=== PATIENT | female | born 1935 | race Caucasian/White ===

== ENCOUNTER 2018-09-26 13:51 | Emergency (ER) | payer MEDICARE ==
[~2018-09-26] VITALS: Ht 160 cm; Wt 69.4 kg
[~2018-09-26 13:51] MED LIST: ASPIR 8181 MG; LEVOTHYROXINE75 MCG PO; METOPROLOL SUCC50 MG PO; OMEPRAZOLE20 M1
--- OUTSIDE RECORDS SUMMARY | 2018-09-26 13:54 | XMS REPORT ---
[facility] Address Unknown Phone Unavailable Care Team Providers Care Stock Broker Name Role Phone Ihsan ALFARO Unavailable Unavailable Problems This patient has no known problems. Allergies, Adverse Reactions, Alerts This patient has no known allergies or adverse reactions. Medications This patient has no known medications. Results Test Description Test Time Test Comments Text Results Atomic Results Result Comments CT LUMBAR SPINE WO [place] [address] Patient Name: JEANNETTE SINGH MR #: [id number] : 1935 Age/Sex: 82/F Req #: [id number] Adm Physician: Ordered by: GEE ALFARO MD Report #: [id number] Location: ER Room/Bed: Procedure: [id number] CT/CT LUMBAR SPINE WO Exam Date: Exam Time: REPORT STATUS: Signed History: Back pain radiates to the right side x1 week Comparison studies: Lumbar spine x-ray 03/29/2017. Technique: Axial images were obtained through the lumbar spine.. Coronal and sagittal images reconstructed from the axial data. Intravenous contrast: None Findings: Number of non-rib bearing vertebral bodies: 5 Alignment: Normal lumbar curvature is maintained. Soft tissues: No gross acute abnormalities. Paraspinal muscles: Mild to moderate symmetric atrophy. Sacroiliac joints: Mild degenerative changes. Vertebrae: Bones are diffusely demineralized. Recent- appearing inferior L4 endplate compression deformity results in approximately 20% height loss. No retropulsion. This finding is new from the lumbar spine x- ray of 03/29/2017. Chronic-appearing endplate fractures include: Superior L1 endplate (up to 40% height loss centrally) inferior L2 endplate (up to 35% height loss centrally), inferior L3 endplate (up to 40% height loss centrally). Degenerative changes: T12-L1: Vacuum disc changes. Patent canal and foramina. L1-L2: Mild loss of disc height with vacuum disc changes. Minimal retrolisthesis of L1 on L2 with associated disc osteophyte complex and facet arthrosis with mild left foraminal stenosis. Patent canal. L2-L3: Vacuum disc changes. Minimal retropulsion of the inferior L2 endplate with associated disc osteophyte complex. No significant canal or foraminal stenosis. L3-L4: Disc bulge asymmetric to the left, thickened ligamentum flavum and facet arthrosis result in mild canal and mild left foraminal stenosis. L4-L5: Vacuum disc changes. Disc bulge, thickened ligamentum flavum and moderate facet arthrosis result in moderate to severe canal stenosis and severe right subarticular stenosis. No significant foraminal stenosis per L5-S1: Severely degenerated disc near complete loss of disc height with disc calcification. No significant canal or foraminal stenosis. Incidental findings: Severe scattered calcified atherosclerosis throughout the abdominal aorta and within its branching vessels. Multiple punctate calcifications throughout the spleen and liver compatible with sequela of granulomatous disease. There are multiple nonenlarged retroperitoneal lymph nodes which are nonspecific. IMPRESSION: 1. Recent-appearing inferior L4 endplate compression fracture (20% height loss). 2. Chronic-appearing endplate compression fractures from L1 to L3. 3. Diffuse bone demineralization. 4. Degenerative changes most notable for severe L5-S1 disc degeneration and moderate to severe canal stenosis and severe right subarticular stenosis at L4-L5. 5. Incidental findings as describe. Findings discussed with Dr. Alfaro at 1233 hours on 09/05/2017. Signed by: Dr. Logan Mcclain M.D. on 09/05/2017 12:36 PM Dictated By: LOGAN MCCLAIN MD [id number] Transcribed By: PHIL on 09/05/17 1236 COPY TO: GEE ALFARO MD
[2018-09-26] MEDS ORDERED: ASPIRIN 81 MG CHEW TAB PO ONE (14:30)
[2018-09-26 15:00] LABS: BASOPHILS % 0.3 % (0.0-1.0); EOSINOPHILS # (AUTO) 0.2 (0.0-0.4); EOSINOPHILS % 1.6 % (0.0-6.0); HEMATOCRIT 43.6 % (34.2-44.1); HEMOGLOBIN 14.6 g/dL (12.0-16.0); LYMPHOCYTES # (AUTO) 1.8 (1.0-3.2); LYMPHOCYTES % 18.8 % (18.0-39.1); MEAN CORPUSCULAR HEMOGLOBIN 30.5 pg (28-32); MEAN CORPUSCULAR HGB CONC 33.5 g/dL (31-35); MEAN CORPUSCULAR VOLUME 91.2 fL (81-99); MONOCYTES # (AUTO) 0.7 (0.2-0.8); MONOCYTES % 7.4 % (4.4-11.3); NEUTROPHILS % 71.5 % (38.7-80.0); PLATELET COUNT 268 x10e3/uL (140-360); RED BLOOD COUNT 4.78 x10e6/uL (3.6-5.1); RED CELL DISTRIBUTION WIDTH 13.2 % (11.7-14.4)
[2018-09-26 15:25] LABS: INR 0.85; PARTIAL THROMBOPLASTIN TIME 30.9 seconds (23.8-35.5); PROTHROMBIN TIME 12.4 seconds (11.9-14.5)
[2018-09-26 15:34] LABS: ALANINE AMINOTRANSFERASE 17 IU/L (0-55); ALBUMIN 3.6 g/dL (3.5-5.0); ALBUMIN/GLOBULIN RATIO 0.8 (0.8-2.0); ALKALINE PHOSPHATASE 103 IU/L (40-150); ANION GAP 15.3 mmol/L (8-16); BLOOD UREA NITROGEN 19 mg/dL (7-26); BUN/CREATININE RATIO 21 (6-25); CARBON DIOXIDE 23 mmol/L (22-29); CHLORIDE 97 mmol/L (98-107); CREATINE KINASE 44 IU/L (29-168); CREATININE, SERUM 0.89 mg/dL (0.57-1.11); EST GLOMERULAR FILTRATION RATE > 60 ML/MIN (60-); GLUCOSE 89 mg/dL (74-118); POTASSIUM 4.3 mmol/L (3.5-5.1); SODIUM 131 mmol/L (136-145)
[2018-09-26] MEDS ORDERED: DOXYCYCLINE HY100 M3 PO (16:00)
[2018-09-26] MEDS ORDERED: CEPHALEXIN500 MG PO (16:00)
[2018-09-26] MEDS ORDERED: FUROSEMIDE40 MG PO (16:00)
[2018-09-26] MEDS ORDERED: ULTRAM 50MG50 MG PO (16:00)
[2018-09-26] MEDS ORDERED: METOPROLOL TART50 MG PO (16:00)
[2018-09-26] MEDS ORDERED: OMEPRAZOLE40 MG PO (16:00)
[2018-09-26] MEDS ORDERED: GABAPENTIN100 MG PO (16:00)
[2018-09-26] MEDS ORDERED: ALPRAZOLAM0.5 MG PO (16:00)
--- NOTE | 2018-09-26 16:08 | Diagnostic Imaging Report ---
EXAM: XR CHEST 1 VIEW DATE: 09/26/2018 2:30 PM INDICATION: Pain COMPARISON: 07/25/2009, no report available FINDINGS: Lines and Tubes: None Heart and Mediastinum: Accentuated by low lung volumes. Tortuous descending aorta with moderate vascular calcifications. Lungs and Pleura: Mild to moderate scattered interstitial/airspace opacities suggesting edema with superimposed basilar atelectasis versus pneumonia. Bones and Soft Tissues: No acute findings. IMPRESSION: 1. Airspace opacities as above. Signed by: Dr. Isidro Lakhani MD on 09/26/2018 4:05 PM
[2018-09-26] MEDS ORDERED: LEVAQUIN500 MG PO (16:56)
[2018-09-26] MEDS ORDERED: NEXIUM40 M1 PO (16:56)
== END 2018-09-26 17:27 | disposition home or self-care (01) ==
LOC: ER 13:51
DX: R05 Cough (principal); R07.89 Other chest pain; J15.9 Unspecified bacterial pneumonia
CPT/HCPCS: 36415; 71045; 80053; 82550; 82553; 83735; 84484; 85025; 85610; 85730; 93005; 99284

== ENCOUNTER 2018-12-20 17:10 | Inpatient (IN) | payer MEDICARE ==
[~2018-12-20] VITALS: Ht 160 cm; Wt 75.8 kg
[~2018-12-20 17:10] MED LIST changes: +ALPRAZOLAM0.5 MG PO; +CEPHALEXIN500 MG PO; +DOXYCYCLINE HY100 M3 PO; +FUROSEMIDE40 MG PO; +GABAPENTIN100 MG PO; +LEVAQUIN500 MG PO; +METOPROLOL TART50 MG PO; +NEXIUM40 M1 PO; +OMEPRAZOLE40 MG PO; +ULTRAM 50MG50 MG PO
--- NOTE | 2018-12-20 18:00 | NUR ---
NOTIFIED NURSING ORIGINATION SPECIALIST TO PAGE ULTRASOUND FOR ARTERIAL DOPPLER.
[2018-12-20 18:20] LABS: BASOPHILS # (AUTO) 0.1 (0.0-0.1); BASOPHILS % 0.5 % (0.0-1.0); EOSINOPHILS % 0.4 % (0.0-6.0); HEMATOCRIT 40.2 % (34.2-44.1); HEMOGLOBIN 14.3 g/dL (12.0-16.0); LYMPHOCYTES # (AUTO) 2.3 (1.0-3.2); LYMPHOCYTES % 22.4 % (18.0-39.1); MEAN CORPUSCULAR HGB CONC 35.6 g/dL (31-35); MEAN CORPUSCULAR VOLUME 92.8 fL (81-99); MONOCYTES % 9.3 % (4.4-11.3); NEUTROPHILS # (AUTO) 6.8 (2.1-6.9); NEUTROPHILS % 66.5 % (38.7-80.0); PLATELET COUNT 265 x10e3/uL (140-360); RED BLOOD COUNT 4.33 x10e6/uL (3.6-5.1); RED CELL DISTRIBUTION WIDTH 15.5 % (11.7-14.4)
[2018-12-20 18:26] LABS: INR 2.1; PROTHROMBIN TIME 25.2 seconds (11.9-14.5)
[2018-12-20 18:27] LABS: PARTIAL THROMBOPLASTIN TIME 57.5 seconds (23.8-35.5)
--- NOTE | 2018-12-20 18:27 | Diagnostic Imaging Report ---
EXAMINATION: CHEST SINGLE (PORTABLE) INDICATION: ^chest pain, shorrtness of breath ^[id number] ^1803 ^Y COMPARISON: 09/26/2018 FINDINGS: AP view TUBES and LINES: None. LUNGS and PLEURA: Limited by body habitus and low lung volumes. Central vascular congestion. Biapical scarring. Mild left basilar haziness. HEART AND MEDIASTINUM: The cardiac silhouette is enlarged. Aorta is calcified and tortuous. BONES AND SOFT TISSUES: No acute osseous lesion. Soft tissues are unremarkable. UPPER ABDOMEN: No free air under the diaphragm. IMPRESSION: Limited as above. Central vascular congestion. Underlying infiltrate in the perihilar regions cannot be entirely excluded. Mild left basilar haziness, likely due to overlying soft tissue shadows. Small effusion and/or atelectasis cannot excluded. Signed by: Dr. Yasmani Mcdermott MD on 12/20/2018 6:24 PM
--- NOTE | 2018-12-20 18:48 | NUR ---
VERBAL REPORT GIVEN TO MAYRA KOCH.
[2018-12-20] MEDS ORDERED: METOPROLOL SUCC50 MG PO (18:55)
[2018-12-20] MEDS ORDERED: WARFARIN SODIU2.5 MG PO (18:55)
[2018-12-20] MEDS ORDERED: CLOPIDOGREL75 MG PO (18:55)
[2018-12-20] MEDS ORDERED: POTASSIUM CHLO10 ME1 PO (18:55)
[2018-12-20] MEDS ORDERED: LOVENOX60 MG/0.6 SC ×2 (18:55)
[2018-12-20] MEDS ORDERED: LISINOPRIL10 MG PO (18:55)
[2018-12-20 18:57] LABS: CLARITY,URINE HAZY (CLEAR); COLOR,URINE YELLOW (YELLOW); LEUKOCYTE ESTERASE ,URINE NEGATIVE (NEGATIVE)
[2018-12-20 18:58] LABS: BILIRUBIN,URINE NEGATIVE (NEGATIVE); KETONES,URINE NEGATIVE (NEGATIVE); NITRITE,URINE POSITIVE (NEGATIVE); PROTEIN,URINE DIPSTICK NEGATIVE (NEGATIVE); URINE UROBILINOGEN 0.2 mg/dL (0.2 - 1)
[2018-12-20 19:04] LABS: BACTERIA,URINE MANY /HPF; EPITHELIAL CELLS,URINE RARE /LPF; RBC,URINE 0-5 /HPF (0-5); WBC,URINE (MAN) 0-5 /HPF (0-5)
--- NOTE | 2018-12-20 19:13 | NUR ---
CONSTRUCTION SKILLS TEACHER IN [place] ROOM
[2018-12-20] MEDS ORDERED: BACITRACIN ZINC 0.9GM TP ONE (19:30)
[2018-12-20 19:31] LABS: ALBUMIN 3.3 g/dL (3.5-5.0); ALBUMIN/GLOBULIN RATIO 0.9 (0.8-2.0); ANION GAP 16.4 mmol/L (8-16); CALCIUM 9.3 mg/dL (8.4-10.2); CREATININE, SERUM 1.04 mg/dL (0.57-1.11); MAGNESIUM 2.4 MG/DL (1.3-2.1); POTASSIUM 4.4 mmol/L (3.5-5.1)
[2018-12-20 19:37] LABS: CREATINE KINASE MB 1.4 ng/mL (0-5.0)
[2018-12-20 20:03] LABS: B-TYPE NATRIURETIC PEPTIDE2 388.8 pg/mL (0-100)
--- NOTE | 2018-12-20 21:53 | NUR ---
TELE BOX #[phone] ATTACHED TO PT
[2018-12-20 21:57] VITALS: BP 121/66
[2018-12-20] MEDS: CEFTRIAXONE SOD 1 GM/NS 50 ML 50 ML IV SCH (22:00)
--- NOTE | 2018-12-20 22:00 | NUR ---
PT ARRIVED TO THE UNIT FROM ER IN STRETCHER WITH C/O CHEST PAIN AND DYSPNEA.AAOX3.ASSESSMENT DONE.NO RESP.DISTRESS.EDEMA NOTED@ LOWER EXTREMITY.IV PATENT.HAS C/O BACK PAIN .NC O2 2L PLACED.SKIN TEAR @ L.LEG AND COVERED WITH DRESSING.ORIENTED TO THE UNIT.BED LOCKED AND IN LOWEST POSITION.BED ALARM ON.PHONE AND CALL LIGHT WITHIN REACH.INSTRUCTED TO CALL FOR ASSISTANCE NEEDED.
[2018-12-20 22:15] VITALS: BP 121/66
[2018-12-21] VITALS (7 sets, daily range): BP systolic 86–129; BP diastolic 50–66
[2018-12-21] MEDS: TRAMADOL HCL 50 MG TAB PO PRN ×3 (00:18→12:46)
--- NOTE | 2018-12-21 00:45 | NUR ---
Ultrasound arterial doppler study done.call placed to consults.
[2018-12-21] MEDS: HYDROCODONE/APAP 5MG-325MG TAB PO PRN (04:57)
[2018-12-21] MEDS ORDERED: FUROSEMIDE 40 MG TAB PO PRN (05:15)
[2018-12-21] MEDS ORDERED: ENOXAPARIN SOD INJ 60 MG/0.6 ML SYR SC SCH ×2 (05:15→17:00)
[2018-12-21 06:09] LABS: INR 1.94; PROTHROMBIN TIME 23.7 seconds (11.9-14.5)
[2018-12-21 06:10] LABS: PARTIAL THROMBOPLASTIN TIME 47.9 seconds (23.8-35.5)
[2018-12-21] MEDS: LEVOTHYROXINE SODIUM 75 MCG TAB PO SCH (06:15)
[2018-12-21 06:26] LABS: CREATINE KINASE MB 1.1 ng/mL (0-5.0)
--- NOTE | 2018-12-21 06:50 | NUR ---
Report given to the oncoming rn walking rounds done.stable condition.
--- NOTE | 2018-12-21 07:10 | NUR ---
Received patient mid fowlers position,side rails upx2, call light within reach. AAOX3 to time, person, place. Respirations even and unlabored. O2 2L NC. Instructed patient to use call light for assistance. Voiced understanding. Will continue to monitor.
[2018-12-21] MEDS ORDERED: SODIUM CHLORIDE 0.9% 250ML 250 ML ONE (08:45)
[2018-12-21] MEDS ORDERED: ASPIRIN 81 MG ENTERIC COATED PO SCH (09:00)
[2018-12-21] MEDS ORDERED: CLOPIDOGREL BISULFATE 75 MG TAB PO SCH (09:00)
[2018-12-21] MEDS: POTASSIUM CHLORIDE 10MEQ EA PO SCH (09:05)
[2018-12-21] MEDS: ASPIRIN 81 MG CHEW TAB PO SCH (09:05)
[2018-12-21] MEDS: LISINOPRIL 10 MG TAB PO SCH (09:06)
[2018-12-21] MEDS: METOPROLOL SUCCINATE 50 MG TAB XL PO SCH (09:06)
[2018-12-21] MEDS: CEFTRIAXONE SOD 1 GM/NS 50 ML 50 ML IV SCH ×2 (09:06→22:12)
[2018-12-21] MEDS: ALPRAZOLAM 0.5 MG TAB PO SCH (09:06)
[2018-12-21] MEDS: PANTOPRAZOLE SOD 40 MG TABEC PO SCH (09:06)
--- NOTE | 2018-12-21 14:08 | NUR ---
Nutrition Screen Note RD Recommendation for Physician: - Continue Cardiac diet Plan of Care: RD following, monitoring for tolerance and adequacy Nutrition reason for involvement: Nutrition Risk Trigger Primary Diagnose(s): Chest pain, CHF exacerbation, Dyspnea, UTI PMH: HTN, PNA, back pain, thyroid disorder,GERD Ht: 63 in Wt: 153 lb BMI: 27.09 kg/m2 IBW: [address] Assessment: (12/21) 83 YOF admitted for chest pain, CHF exacerbation, dyspnea, and UTI, pt seen today due to admit dx of CHF exacerbation. Pt reports fair appetite and intake, states this is her baseline. Pt denies wt loss, reports UBW of 145# and states she gained wt due to fluid. 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 Pt reported nausea at time of visit and reported vomiting yesterday, diet education not appropriate at this time. Chart reviewed. Labs and meds noted. Current Diet: Cardiac Malnutrition Evaluation (12/21/18) The patient does not meet criteria for a specified degree of malnutrition at this time. Will re-evaluate at follow-up as appropriate. Energy intake: <75% of estimated energy requirements for >3 months Weight loss: None, UBW 145# Fat loss: none Muscle loss: none Supporting Evidence: Fluid accumulation: unable to evaluate Functional Status: unable to evaluate Diet Education Needs Assessment: Diet education indicated, pt not appropriate for education at this time. Nutrition Care Level: Low Signed: Emperatriz Alanis RD, LD, [facility]
[2018-12-21 14:23] LABS: CREATINE KINASE MB 0.6 ng/mL (0-5.0)
--- NOTE | 2018-12-21 14:36 | NUR ---
WOUND CARE CONSULTATION - INITIAL EVALUATION Patient admitted to ER with SOB, Chest pain, CHF exacerbation, and UTI and BLE increased swelling. WC Consulted for Skin Tear To LLE - present on admission from hitting it on wheel chair while at home. LABS: WBC10.22 HGB14.3 HCT40.2 NEUT%66.5 GLU85 ALB3.3 BLE Arterial US - Results Pending WOUND CARE CONSULTED FOR LLE SKIN EAR- Traumatic Injury with wheel chair at home. Patient in bed calm and in good spirits. - Verbalizes swelling on legs has improved - LLE bothers her more than right. Pain level of 3 of 10 at time of visit. - LLE Robbins has skin tear with bruising from liseth to area below the knee. States to be improving. Was more swollen and purple on admission. - LLE Redness - Edema +3 Pitting at domenica ankles. - Non-palpable pedal pulses. - Able to turn self and lift legs. - Live Score 17 - Moderate PUP Protocol In Place. IMPRESSION: LLE Anterior - SKIN TEAR- 3x3x0.1cm. RECOMMENDATION: 1. Left Anterior Lower Leg- Skin Tear - Cleanse wound with normal saline and 4x4 gauze daily. - Apply Single Layer Xeroform and Cover with 4x4 gauze and secure with Light Kerlix Wrap Daily. 2. Offload Heels with Pillows While In Bed. 3. Encourage Turning and Repositioning every 2 hours. 4. Continue Alternating Pressure Air mattress. Addendum: 12/21/18 at 1455 by William Johnson RN Amended: Links added.
--- NOTE | 2018-12-21 15:55 | Consultation ---
DATE OF CONSULTATION: December 21, 2018 CARDIOLOGY CONSULTATION REQUESTING PHYSICIAN: Dr. Spann. REASON FOR CONSULTATION: Congestive heart failure. HISTORY OF PRESENT ILLNESS: This is an 83-year-old woman with history of coronary artery disease status post stent, peripheral arterial disease, chronic systolic heart failure with ejection fraction 25% to 30% on echocardiogram at the office, recently diagnosed bilateral DVT and hypertension, who was admitted with complaints of chest pain and shortness of breath. The patient reports she was recently discharged from [facility] on Lovenox bridge to therapeutic INR. On Friday she developed shortness of breath as well as chest pain which she described as pressure 8 out of 10 in severity. This was associated with diaphoresis on Friday. The pain did not radiate and was not associated with any nausea. Yesterday she felt weak and began to have episodes of vomiting for which she presented to the ER for further evaluation. She denies any fever, chills or diarrhea. PAST MEDICAL HISTORY 1. Coronary artery disease status post stent. 2. Peripheral arterial disease. 3. Chronic systolic heart failure. 4. Recently diagnosed bilateral lower extremity DVT. 5. Hypertension. 6. Hypothyroidism. PAST SURGICAL HISTORY 1. Kyphoplasty. 2. Laminectomy. 3. Hernia repair. 4. Colectomy. ALLERGIES: PLEASE SEE EMR. MEDICATIONS: Please see medication list. SOCIAL HISTORY: No tobacco, alcohol or illicit drugs. FAMILY HISTORY: Noncontributory to current illness. PHYSICAL EXAMINATION VITAL SIGNS: Temperature 98.1 degrees, pulse 66, respiratory rate 18, blood pressure 129/60, oxygen saturation 97% on 2 liters nasal cannula. GENERAL: Elderly woman in no acute distress, awake and alert. LUNGS: Clear to auscultation bilaterally. No wheezes or crackles. CARDIOVASCULAR: Normal rate, regular rhythm. No murmur. Normal S1 and S2. ABDOMEN: Soft, nontender. EXTREMITIES: 2+ pitting edema bilateral lower extremities with erythema noted and skin changes consistent with chronic venous stasis. LABS: WBC 10.22, hemoglobin 14.3, hematocrit 40.2, platelets 265. Sodium 137, potassium 4.4, chloride 99, CO2 26, BUN 335, creatinine 1.04. Troponin 0.029. BNP 388. ELECTROCARDIOGRAM: Sinus rhythm with LVH with repolarization abnormality. CHEST X-RAY: Central vascular congestion. Underlying infiltrate in the perihilar regions cannot be entirely excluded. Mild left basilar haziness likely due to overlying soft-tissue shadows. Small effusion and/or atelectasis is not excluded. IMPRESSION 1. Lauqv-ge-keetbsu systolic heart failure. 2. Bilateral lower extremity deep vein thrombosis. 3. Coronary artery disease status post stent. 4. Peripheral arterial disease. 5. Hypertension. 6. Hypothyroidism. RECOMMENDATIONS: The patient's INR was subtherapeutic today. Resume warfarin with Lovenox bridge. Start IV diuretics. Monitor creatinine closely. Patient will need ischemic evaluation once her volume status improves. If creatinine permits, consider CTA of the chest to evaluate for pulmonary embolism. Continue home cardiac medications otherwise. Given her indication for anticoagulation, recommend stopping Plavix and continuing aspirin. Blood pressure is acceptable for age. No change in current antihypertensive therapy. Thank you for this consult. We will continue to follow. Job#: [id number] EV
[2018-12-21] MEDS: FUROSEMIDE INJ 10 MG/ML 4 ML VIAL IV SCH (15:59)
[2018-12-21] MEDS: ENOXAPARIN SODIUM INJ 100 MG/ML SYR SC SCH (15:59)
[2018-12-21] MEDS: WARFARIN SOD 5 MG TAB PO SCH (15:59)
--- NOTE | 2018-12-21 19:21 | NUR ---
Report given to oncoming nurse of patients status. No s/s of acute distress noted.
--- NOTE | 2018-12-21 21:21 | NUR ---
spoke with dr sebastien cleary. informed of bp tonight. 86/50, hr 68. pt asymtomatic. dr stated to hold morning dose of lisinopril and metoprolol and no other interventions for now. pt is asymptomatic.
[2018-12-22] VITALS (7 sets, daily range): BP systolic 90–125; BP diastolic 57–70
[2018-12-22] MEDS: ENOXAPARIN SODIUM INJ 100 MG/ML SYR SC SCH ×2 (03:06→16:06)
[2018-12-22] MEDS: VANCOMYCIN 1GM/NS 250 ML 250 ML IV SCH ×2 (06:41→16:06)
--- NOTE | 2018-12-22 07:05 | NUR ---
Received patient mid fowlers position, side rails upx2, call light within reach. AAOX3 to time, person, place. Respirations even and unlabored. SPO2 92% on Room Air. Instructed patient to use call light for assistance. Voiced understanding. Will continue to monitor.
[2018-12-22] MEDS: METOPROLOL SUCCINATE 50 MG TAB XL PO SCH (07:49)
[2018-12-22] MEDS: LISINOPRIL 10 MG TAB PO SCH (07:50)
[2018-12-22] MEDS: ALPRAZOLAM 0.5 MG TAB PO SCH (07:50)
[2018-12-22] MEDS: PANTOPRAZOLE SOD 40 MG TABEC PO SCH (07:50)
[2018-12-22] MEDS: ASPIRIN 81 MG CHEW TAB PO SCH (07:50)
[2018-12-22] MEDS: FUROSEMIDE INJ 10 MG/ML 4 ML VIAL IV SCH (07:50)
[2018-12-22] MEDS: LEVOTHYROXINE SODIUM 75 MCG TAB PO SCH (07:50)
[2018-12-22] MEDS: POTASSIUM CHLORIDE 10MEQ EA PO SCH (08:39)
[2018-12-22] MEDS ORDERED: METOPROLOL SUCCINATE 50 MG TAB XL PO ONE (09:30)
[2018-12-22 10:18] LABS: ANION GAP 18.2 mmol/L (8-16); CALCIUM 9.3 mg/dL (8.4-10.2); CREATININE, SERUM 0.96 mg/dL (0.57-1.11); POTASSIUM 5.2 mmol/L (3.5-5.1)
[2018-12-22 10:20] LABS: INR 2.35; PROTHROMBIN TIME 27.5 seconds (11.9-14.5)
--- NOTE | 2018-12-22 10:26 | Progress Note ---
DATE: December 22, 2018 CARDIOLOGY PROGRESS NOTE SUBJECTIVE: The patient denies chest pain. She is reporting some shortness of breath. OBJECTIVE VITALS: Temperature 96.8 degrees, pulse 67, respiratory rate 18, blood pressure 110/65, oxygen saturation 92% on room air. GENERAL: Elderly woman in no acute distress. Awake and alert. LUNGS: Clear to auscultation bilaterally. No wheezes or crackles. CARDIOVASCULAR: Normal rate. Regular rhythm. No murmur. Normal S1 and S2. ABDOMEN: Soft and nontender. EXTREMITIES: Two plus pitting edema bilaterally with erythema noted and skin changes consistent with chronic venous stasis. CARDIAC MEDICATIONS 1. Lasix 40 mg IV daily. 2. Levothyroxine 75 mcg p.o. daily. 3. Aspirin 81 mg p.o. daily. 4. Warfarin 5 mg p.o. daily. 5. Metoprolol succinate 50 mg p.o. daily. 6. Lisinopril 10 mg p.o. daily. LABS: Pending. Telemetry is normal sinus rhythm. IMPRESSION 1. Piskv-pa-thzziie systolic heart failure. 2. Bilateral lower extremity deep venous thrombosis. 3. Coronary artery disease: Status post stent. 4. Peripheral arterial disease. 5. Hypertension. 6. Hypothyroidism. RECOMMENDATIONS: Continue Lovenox bridge to therapeutic INR. Monitor INR closely. Check labs. Follow creatinine. If creatinine is stable, increase diuretics. The patient will need once her volume status improves. Continue current cardiac medications otherwise. Thank you for this consult. We will continue to follow. Job#: [id number] AL
--- NOTE | 2018-12-22 10:54 | NUR ---
aware of PT/INR and Potassium 5.2. See orders
[2018-12-22] MEDS: TRAMADOL HCL 50 MG TAB PO PRN (11:15)
--- NOTE | 2018-12-22 12:00 | NUR ---
Physical therapist called stating patient bleeding from right lower extremity. Wilman size skin tear noted to right lower extremity. Site cleaned and wrapped with kerlix.
--- NOTE | 2018-12-22 12:35 | NUR ---
Per Agusto NUNEZ PICC line nurse. Unable to do PICC line.
--- NOTE | 2018-12-22 12:40 | NUR ---
Per Dr.Schnell livingston to place midline. Agusto NUNEZ PICC line nurse aware. Midline placed by Agusto NUNEZ
[2018-12-22] MEDS: CEFTRIAXONE SOD 1 GM/NS 50 ML 50 ML IV SCH ×2 (12:50→22:20)
--- NOTE | 2018-12-22 13:55 | Consultation ---
DATE OF CONSULTATION: December 22, 2018 INFECTIOUS DISEASE CONSULTATION This is a patient of Hardy Spann MD. Ms. Marrero is a pleasant, 83-year-old female admitted to [facility] in [place], [place], with cellulitis of the left lower extremity. She has ulceration on her leg as well. It has increased in size and erythema and pain. Also, other reasons she came to the hospital were pain, shortness of breath and difficulty breathing. She was recently discharged from [facility] where she was admitted as well for shortness of breath. The patient was found to have cellulitis of the left lower extremity. Therefore, infectious disease was consulted for management of antibiotics. PAST MEDICAL HISTORY: Includes coronary artery disease, CHF with ejection fraction of 25% to 30%, atrial fibrillation, bilateral lower extremity DVTs, hypothyroidism, hypertension, debility, obesity, and chronic pain. ALLERGIES: THE PATIENT IS ALLERGIC TO AMOXICILLIN AND NAPROXEN. LABORATORY STUDIES: White count 10.22, hemoglobin 14.3, platelets 365. Sodium 134, potassium 5.2, BUN 24, creatinine 0.96, lactic acid 6.2, lipase 47, AST 36, ALT 29. INR level 2.35. Microbiology: Urine was sent for culture, which yielded E. coli. Chest x-ray was done and showed mild left basilar haziness. Lower extremity ultrasound was ordered. MEDICATIONS: Medication list has been reviewed. From an infectious disease point of view, the patient is on vancomycin and Rocephin. REVIEW OF SYSTEMS: No nausea, vomiting, fever, chills, chest pain. Shortness of breath has improved. PHYSICAL EXAMINATION GENERAL: Alert and oriented x3, pleasant, in no acute distress, comfortable in bed. CVS: S1 and S2. CHEST: Equal expansion and decreased breath sounds. No acute distress. ABDOMEN: Soft. Bowel sounds positive in 4 quadrants. Nontender. HEENT: Moist. No pallor. No JVD. EXTREMITIES: Left lower extremity with 2+ swelling and erythema and ecchymosis. Tender to touch. There is a skin ulcer as well on the left lower extremity around the ankle area which is on local care. ASSESSMENT AND PLAN: This 83-year-old female with congestive heart failure and poor ejection fraction of the left ventricle as mentioned above came with shortness of breath and edema of the extremities, worse on the left side, minimally on the right side. Concern for cellulitis of the left lower extremity. The patient is on vancomycin and Rocephin. I agree with antibiotics at this point. Monitor the patient throughout the hospitalization. Will discuss with the staff regarding vancomycin trough. I have discussed this case with Dr. Perez in detail. I want to thank you for this kind consult. Further management will be based on daily findings and laboratory and physical examination. Dictated by LONI Mackey Job#: [id number]
--- NOTE | 2018-12-22 14:46 | NUR ---
CM SPOKE TO PATIENT AT BEDSIDE REGARDING DISCHARGE PLAN. PATIENT IS AWARE THAT [facility]. AT THIS TIME PATIENT REFUSES TO BE PLACED [facility]; HOWEVER, PATIENT STATES THAT IF SHE IS UNABLE TO GET STRONGER BY TOMORROW AFTER HER PHYSICAL THERAPY SESSION, WE CAN DISCUSS SNF PLACEMENT. AT THIS TIME PATIENT WANTS TO GO HOME WITH HOME HEALTH AND A HOSPITAL BED.
[2018-12-22] MEDS: WARFARIN SOD 5 MG TAB PO SCH (16:07)
--- NOTE | 2018-12-22 17:37 | NUR ---
Preliminary for Bilateral lower extremity venous doppler positive for DVT on bilateral lower extremities. Dr.Patel Scott. aware. No new orders.
--- NOTE | 2018-12-22 19:19 | NUR ---
Walking rounds done. Report given to oncoming nurse. No s/s of acute distress noted
[2018-12-23] VITALS: BP 115/56
[2018-12-23] MEDS: ENOXAPARIN SODIUM INJ 100 MG/ML SYR SC SCH (03:12)
[2018-12-23 04:00] VITALS: BP 111/62
[2018-12-23] MEDS: VANCOMYCIN 1GM/NS 250 ML 250 ML IV SCH (06:29)
[2018-12-23] MEDS: HYDROCODONE/APAP 5MG-325MG TAB PO PRN (07:16)
[2018-12-23 08:15] VITALS: BP 128/60
[2018-12-23 08:53] LABS: INR 3.92
[2018-12-23 08:59] LABS: ANION GAP 13.1 mmol/L (8-16); BLOOD UREA NITROGEN 24 mg/dL (7-26); BUN/CREATININE RATIO 28 (6-25); CALCIUM 8.4 mg/dL (8.4-10.2); CARBON DIOXIDE 21 mmol/L (22-29); CHLORIDE 99 mmol/L (98-107); CREATININE, SERUM 0.85 mg/dL (0.57-1.11); EST GLOMERULAR FILTRATION RATE > 60 ML/MIN (60-); GLUCOSE 101 mg/dL (74-118); POTASSIUM 4.1 mmol/L (3.5-5.1); SODIUM 129 mmol/L (136-145)
[2018-12-23] MEDS: ASPIRIN 81 MG CHEW TAB PO SCH (09:04)
[2018-12-23] MEDS: LISINOPRIL 10 MG TAB PO SCH (09:04)
[2018-12-23] MEDS: LEVOTHYROXINE SODIUM 75 MCG TAB PO SCH (09:04)
[2018-12-23] MEDS: PANTOPRAZOLE SOD 40 MG TABEC PO SCH (09:04)
[2018-12-23] MEDS: FUROSEMIDE INJ 10 MG/ML 4 ML VIAL IV SCH ×2 (09:04→17:00)
[2018-12-23] MEDS: ALPRAZOLAM 0.5 MG TAB PO SCH (09:05)
[2018-12-23] MEDS: METOPROLOL SUCCINATE 50 MG TAB XL PO SCH (09:05)
--- NOTE | 2018-12-23 09:06 | NUR ---
SPOKE WITH MD HAYWARD REGARDING PT. STATES TO HOLD COUMADIN AT THIS TIME
[2018-12-23] MEDS: CEFTRIAXONE SOD 1 GM/NS 50 ML 50 ML IV SCH ×2 (10:00→22:00)
--- NOTE | 2018-12-23 10:06 | NUR ---
DRESSING CHANGES TO BILATERAL UPPER AND LOWER EXTREMITIES CHANGED AT THIS TIME
[2018-12-23 12:13] VITALS: BP 91/52
[2018-12-23] MEDS ORDERED: MORPHINE SULFATE INJ 4 MG/ML INJ 1ML IV PRN (12:15)
--- NOTE | 2018-12-23 12:16 | NUR ---
SPOKE WITH MD HAYWARD REGARDING PT BACK PAIN UNRESOLVED WITH PO PAIN MEDS. NEW ORDERS FOR MORPHINE RECEIVED
[2018-12-23] MEDS: TRAMADOL HCL 50 MG TAB PO PRN ×2 (13:29→21:00)
--- NOTE | 2018-12-23 15:19 | NUR ---
Met with pt and discussed choices for SNF. She states she does not want SNF and wants to go home instead. CM notified pt classification case manager, Tita Gabriel RN/JUAN.
[2018-12-23 15:59] VITALS: BP 99/58
--- NOTE | 2018-12-23 16:36 | Progress Note ---
DATE: December 23, 2018 CARDIOLOGY PROGRESS NOTE SUBJECTIVE: The patient denies chest pain. However, she is complaining of shortness of breath and back pain. OBJECTIVE VITALS: Temperature 97.6 degrees, pulse 88, respiratory rate 16, blood pressure 91/52, oxygen saturation 91% on room air. GENERAL: Elderly woman frail and in no acute distress. Awake and alert. LUNGS: Clear to auscultation bilaterally. No wheezes or crackles. CARDIOVASCULAR: Normal rate. Regular rhythm. No murmur. Normal S1 and S2. ABDOMEN: Soft and nontender. EXTREMITIES: Two plus pitting edema with erythema present. CARDIAC MEDICATIONS 1. Metoprolol succinate 50 mg p.o. daily. 2. Furosemide 40 mg IV daily. 3. Lisinopril 10 mg p.o. daily. 4. Levothyroxine 75 mcg p.o. daily. 5. Aspirin 81 mg p.o. daily. LABS: Sodium 129, potassium 4.1, chloride 99, CO2 21, BUN 24, creatinine 0.85. Bilateral lower extremity venous Doppler revealed bilateral lower extremity presence of DVT in bilateral lower extremities. Telemetry is normal sinus rhythm. IMPRESSION 1. Vztjh-qq-ixotswy systolic heart failure. 2. Bilateral lower extremity deep venous thrombosis. 3. Coronary artery disease: Status post stent. 4. Peripheral arterial disease. 5. Hypertension. 6. Hypothyroidism. 7. Supratherapeutic INR. RECOMMENDATIONS: INR is supratherapeutic. Hold warfarin today. Resume at lower dose once INR is back in therapeutic range. Continue monitoring creatinine. Continue strict I's and O's. Increase diuretics. Check chest x-ray given complaint of shortness of breath. Continue current cardiac medications otherwise. Thank you for this consultation. We will continue to follow. Job#: [id number] [place]
--- NOTE | 2018-12-23 17:05 | Diagnostic Imaging Report ---
EXAM: XR CHEST 1 VIEW DATE: 12/23/2018 4:03 PM INDICATION: CHF COMPARISON: None FINDINGS: Lines and Tubes: Catheter overlies right axilla with tip in the region of the subclavian/axillary vein. Heart and Mediastinum: Heart mildly prominent. Aortic vascular calcifications. Lungs and Pleura: Basilar atelectasis. Questionable mild edema. Bones and Soft Tissues: No acute findings. IMPRESSION: 1. Tip of vascular catheter overlies right axilla. 2. Questionable mild edema. Signed by: Dr. Isidro Lakhani MD on 12/23/2018 5:01 PM
--- NOTE | 2018-12-23 18:06 | NUR ---
PAGEIhsan GIRON REGARDING VANC TROUGH OF 23. AWAITING FOR CALL BACK.
--- NOTE | 2018-12-23 18:37 | NUR ---
SPOKE WITH MD GIRON REGARDING VANC TROUGH. ORDERS TO CHANGE VANC TO Q24 GIVEN. HOLD DOSE FOR TODAY AND START TOMORROW
[2018-12-23 20:00] VITALS: BP 112/57
[2018-12-24] VITALS (7 sets, daily range): BP systolic 108–134; BP diastolic 52–72
[2018-12-24 05:33] LABS: BASOPHILS % 0.3 % (0.0-1.0); EOSINOPHILS % 0.3 % (0.0-6.0); HEMATOCRIT 34.7 % (34.2-44.1); HEMOGLOBIN 11.6 g/dL (12.0-16.0); LYMPHOCYTES # (AUTO) 1.9 (1.0-3.2); LYMPHOCYTES % 21.1 % (18.0-39.1); MEAN CORPUSCULAR HEMOGLOBIN 31.1 pg (28-32); MEAN CORPUSCULAR HGB CONC 33.4 g/dL (31-35); MONOCYTES # (AUTO) 0.7 (0.2-0.8); MONOCYTES % 7.8 % (4.4-11.3); NEUTROPHILS # (AUTO) 6.2 (2.1-6.9); NEUTROPHILS % 69.5 % (38.7-80.0); PLATELET COUNT 325 x10e3/uL (140-360); RED BLOOD COUNT 3.73 x10e6/uL (3.6-5.1); RED CELL DISTRIBUTION WIDTH 15.6 % (11.7-14.4)
[2018-12-24 05:37] LABS: INR 2.78; PROTHROMBIN TIME 31.3 seconds (11.9-14.5)
[2018-12-24 05:52] LABS: ALANINE AMINOTRANSFERASE 25 IU/L (0-55); ALBUMIN 2.5 g/dL (3.5-5.0); ALBUMIN/GLOBULIN RATIO 0.8 (0.8-2.0); ALKALINE PHOSPHATASE 106 IU/L (40-150); ANION GAP 12.4 mmol/L (8-16); BLOOD UREA NITROGEN 24 mg/dL (7-26); BUN/CREATININE RATIO 30 (6-25); CALCIUM 8.4 mg/dL (8.4-10.2); CARBON DIOXIDE 22 mmol/L (22-29); CHLORIDE 99 mmol/L (98-107); EST GLOMERULAR FILTRATION RATE > 60 ML/MIN (60-); GLUCOSE 101 mg/dL (74-118); POTASSIUM 4.4 mmol/L (3.5-5.1); SODIUM 129 mmol/L (136-145)
[2018-12-24] MEDS: LISINOPRIL 10 MG TAB PO SCH (09:00)
[2018-12-24] MEDS: ALPRAZOLAM 0.5 MG TAB PO SCH (09:04)
[2018-12-24] MEDS: PANTOPRAZOLE SOD 40 MG TABEC PO SCH (09:04)
[2018-12-24] MEDS: ASPIRIN 81 MG CHEW TAB PO SCH (09:04)
[2018-12-24] MEDS: FUROSEMIDE INJ 10 MG/ML 4 ML VIAL IV SCH ×2 (09:04→17:00)
[2018-12-24] MEDS: LEVOTHYROXINE SODIUM 75 MCG TAB PO SCH (09:04)
[2018-12-24] MEDS: METOPROLOL SUCCINATE 50 MG TAB XL PO SCH (09:04)
[2018-12-24] MEDS: CEFTRIAXONE SOD 1 GM/NS 50 ML 50 ML IV SCH ×2 (10:16→21:34)
--- NOTE | 2018-12-24 15:55 | NUR ---
PT OFF UNIT TO RADIOLOGY FOR CT OF CHEST AT THIS TIME
--- NOTE | 2018-12-24 16:28 | Progress Note ---
DATE: December 24, 2018 CARDIOLOGY PROGRESS NOTE SUBJECTIVE: The patient reports chest pain with inspiration. She continues to have shortness of breath. OBJECTIVE VITAL SIGNS: Temperature 97.6 degrees, pulse 70, respiratory rate 18, blood pressure 114/59, oxygen saturation 93% on room air. GENERAL: Elderly woman, frail, in no acute distress. Awake and alert. LUNGS: Clear to auscultation bilaterally. No wheezes or crackles. CARDIOVASCULAR: Normal rate, regular rhythm. No murmur. Normal S1 and S2. ABDOMEN: Soft, nontender. EXTREMITIES: 2+ pitting edema, left greater than right. Erythema is present. CARDIAC MEDICATIONS 1. Furosemide 40 mg IV b.i.d. 2. Metoprolol succinate 50 mg p.o. daily. 3. Levothyroxine 75 mcg p.o. daily. 4. Aspirin 81 mg p.o. daily. 5. Lisinopril 10 mg p.o. daily. 6. Warfarin 4 mg p.o. daily. LABS: WBC 8.95, hemoglobin 11.6, hematocrit 34.7, platelets 325. Sodium 129, potassium 4.4, chloride 99, CO2 24, BUN 24, creatinine 0.8. INR 2.78. TELEMETRY: Normal sinus rhythm. IMPRESSION 1. Bnbfi-tj-xaezxkx systolic heart failure. 2. Bilateral lower extremity deep vein thrombosis. 3. Coronary artery disease status post stent. 4. Peripheral arterial disease. 5. Hypertension. 6. Hypothyroidism. 7. Supratherapeutic international normalized ratio, now therapeutic. RECOMMENDATIONS: INR is now therapeutic. We will resume warfarin today. Monitor INR closely given bilateral deep vein thrombosis. Given patient's continued shortness of breath as well as chest pain with inspiration, we will obtain CTA of the chest to rule out pulmonary embolism. Continue current cardiac medications. Thank you for this consult. We will continue to follow. Job#: [id number] EV
--- NOTE | 2018-12-24 16:34 | NUR ---
PAGED MD FARLEY REGARDING CT RESULTS . AWAITING FOR CALL BACK
[2018-12-24] MEDS ORDERED: IOPAMIDOL 370 MG/ML 200 ML INFUS..BTL INJ ONE (16:46)
[2018-12-24] MEDS ORDERED: SODIUM CHLORIDE 0.9% 50ML 50 ML ONE (16:46)
--- NOTE | 2018-12-24 16:51 | Diagnostic Imaging Report ---
EXAM: CT Chest WITH contrast INDICATION: Acute shortness of breath, query pulmonary embolism. COMPARISON: Chest radiograph 12/23/2018. TECHNIQUE: Chest was scanned utilizing a multidetector helical scanner from the lung apex through the level of the adrenal glands without administration of IV contrast. Coronal and sagittal reformations were obtained. Pulmonary embolism protocol was performed. Dose modulation, iterative reconstruction, and/or weight based adjustment of the mA/kV was utilized to reduce the radiation dose to as low as reasonably achievable. IV CONTRAST: 100 mL of Isovue 370. RADIATION DOSE: Total DLP: 504.9 mGy*cm COMPLICATIONS: None FINDINGS: LINES/ TUBES: None. PULMONARY ARTERIES: The main pulmonary artery measures 2.8 cm. There is variant right-sided pulmonary arterial anatomy with two lobar branches supplying the right upper lobe. There is pulmonary embolism involving the right lower lobar and segmental branches as well as to a lesser extent lobar/segmental pulmonary emboli involving the right upper lobe. No evidence of main or left-sided pulmonary embolism. LUNGS AND AIRWAYS: Diffuse motion artifact markedly limits evaluation, particularly for lung nodules. The central airways appear patent. There is somewhat linear and wedge-shaped opacity involving the right lower lobe. There is patchy dependent atelectasis at the lung bases. Mild biapical pleural-parenchymal opacity, left greater than right. There is a calcified granuloma in the right lower lobe. PLEURA: The pleural spaces are clear. HEART AND MEDIASTINUM: The thyroid gland is normal. Prominent paratracheal lymph nodes, which measure up to 9 mm, nonspecific, but may be reactive. There is coronary atherosclerosis. The RV to LV ratio is <1. Extensive atherosclerotic calcifications of the thoracic aorta and branch vessels. UPPER ABDOMEN: Limited non-contrast views of the upper abdomen were performed. There is a large hiatal hernia. There are calcified hepatic and splenic granulomas. The partially visualized adrenal glands and kidneys appear unremarkable. BONES/SOFT TISSUES: There are age indeterminate moderate wedge compression deformities of T11 and T12. Partially seen wedge compression deformity of L1. Wedge compression deformities are present of T7 and T8 with posterior vertebral augmentation changes. IMPRESSION: Lobar and segmental pulmonary emboli involving the right lower lobe and to a lesser extent the right upper lobe. No evidence of main or left sided pulmonary emboli. No CT evidence of right heart strain. Linear and somewhat wedge-shaped opacity involving the right lower lobe, which may represent developing pulmonary infarction. The above findings were discussed with MAYRA Baig on 12/24/2018 at 4:32 PM, who responded indicating that the communication was understood and will communicate the findings to the referring physician directly. Age-indeterminate moderate wedge compression deformities of T11 and T12. Partially seen wedge compression deformity of L1. Signed by: Dr. Henry Davis MD on 12/24/2018 4:48 PM
--- NOTE | 2018-12-24 16:57 | NUR ---
SPOKE WITH MD FARLEY REGARDING POSITIVE RESULTS FOR PE ON CHEST CT. STATES COUMADIN IS THE RIGHT THERAPY FOR HER NOW. INSTRUCTED TO HOLD AFTERNOON DOSE OF LASIX FOR TODAY AND DRAW AND INR IN THE MORNING. ORDERS RECEIVED
[2018-12-24] MEDS: WARFARIN SOD 2 MG TAB PO SCH (17:08)
--- NOTE | 2018-12-24 17:12 | NUR ---
NOTIFIED MD HAYWARD OF POSITIVE PE. ORDERS FOR BEDREST GIVEN.
[2018-12-24] MEDS: VANCOMYCIN 1GM/NS 250 ML 250 ML IV SCH (18:53)
[2018-12-24] MEDS: TRAMADOL HCL 50 MG TAB PO PRN (21:34)
[2018-12-25] VITALS (7 sets, daily range): BP systolic 107–136; BP diastolic 45–70
[2018-12-25 05:32] LABS: INR 2.49; PROTHROMBIN TIME 28.8 seconds (11.9-14.5)
[2018-12-25] MEDS: METOPROLOL SUCCINATE 50 MG TAB XL PO SCH (09:05)
[2018-12-25] MEDS: LISINOPRIL 10 MG TAB PO SCH (09:05)
[2018-12-25] MEDS: ASPIRIN 81 MG CHEW TAB PO SCH (09:05)
[2018-12-25] MEDS: PANTOPRAZOLE SOD 40 MG TABEC PO SCH (09:05)
[2018-12-25] MEDS: LEVOTHYROXINE SODIUM 75 MCG TAB PO SCH (09:05)
[2018-12-25] MEDS: FUROSEMIDE INJ 10 MG/ML 4 ML VIAL IV SCH ×2 (09:05→17:35)
[2018-12-25] MEDS: ALPRAZOLAM 0.5 MG TAB PO SCH (09:05)
--- NOTE | 2018-12-25 09:05 | NUR ---
assessment complete no distress noted, updated on poc voiced understanding, denies pain at this time, dsg to ble c/d/i, dsg to bue c/d/i, redness noted, to md aaron aware,r midline intact, no other co voiced call light in reach will continue to monitor
[2018-12-25] MEDS: CEFTRIAXONE SOD 1 GM/NS 50 ML 50 ML IV SCH ×2 (09:26→22:00)
--- NOTE | 2018-12-25 14:01 | Progress Note ---
DATE: December 25, 2018 CARDIOLOGY PROGRESS NOTE SUBJECTIVE: The patient reports her shortness of breath and chest pain are improved, but remain. OBJECTIVE VITALS: Temperature 97.6 degrees, pulse 66, respiratory rate 16, blood pressure 136/60, oxygen saturation 93% on room air. GENERAL: Awake, alert and in no acute distress. Elderly frail woman. LUNGS: Clear to auscultation bilaterally. No wheezes or crackles. CARDIOVASCULAR: Normal rate. Regular rhythm. No murmur. Normal S1 and S2. ABDOMEN: Soft and nontender. EXTREMITIES: Two plus pitting edema, left greater than right. Erythema is present, as well as bruising. CARDIAC MEDICATIONS 1. Furosemide 40 mg IV b.i.d. 2. Metoprolol succinate 50 mg p.o. daily. 3. Lisinopril 10 mg p.o. daily. 4. Levothyroxine 75 mcg p.o. daily. 5. Aspirin 81 mg p.o. daily. 6. Warfarin 4 mg p.o. daily. LABS: None today. CT of chest with lobar and segmental pulmonary emboli involving the right lower lobe and to a lesser extent the right upper lobe. No evidence of main or left-sided pulmonary emboli. No CT evidence of right heart strain. Linear and somewhat wedged shape opacity involving the right lower lobe, which may represent developing pulmonary infarction. Telemetry is normal sinus rhythm with PVCs. IMPRESSION 1. Cvwhz-mt-ubawcpg systolic heart failure. 2. Pulmonary emboli. 3. Bilateral lower extremity deep venous thrombosis. 4. Coronary artery disease: Status post stent. 5. Peripheral arterial disease. 6. Hypertension. 7. Hypothyroidism. 8. Supratherapeutic INR, now therapeutic. RECOMMNEDATIONS: Patient's INR is therapeutic. Continue warfarin. Monitor closely given her bilateral DVT and pulmonary emboli. Continue current cardiac medications otherwise. Thank you for this consult. We will continue to follow. Job#: [id number] VALARIE
--- NOTE | 2018-12-25 15:10 | NUR ---
Visit made by the Spiritual Care Department Pastoral Visitor, Kirby Edwards. PV provided pastoral presence, hospitality, and supportive listening. Pastoral Visitor informed pt/family of the scope of Garbage [employer] and availability. MITRA CIFUENTES Bobbin Cleaner Hand Spiritual Care Department O: [phone] Pager: [phone] ([phone] number calling from)
--- NOTE | 2018-12-25 15:30 | NUR ---
wound care as per ordered pt tolerated well
[2018-12-25] MEDS: TRAMADOL HCL 50 MG TAB PO PRN (15:52)
[2018-12-25] MEDS: VANCOMYCIN 1GM/NS 250 ML 250 ML IV SCH (17:36)
[2018-12-25] MEDS: WARFARIN SOD 2 MG TAB PO SCH (17:36)
--- NOTE | 2018-12-25 19:10 | NUR ---
REPORT RECEIVED FROM OFF GOING NURSE, PT RESTING IN BED ALERT AND ORIENTED, NO DISTRESS NOTED, TELEMETRY NOTED, BED LOCKED AND LOW, CALL LIGHT IN REACH, INSTRUCTED TO CALL WITH NEEDS
[2018-12-26] VITALS (7 sets, daily range): BP systolic 101–130; BP diastolic 55–60
--- NOTE | 2018-12-26 06:02 | NUR ---
PT RESTING IN BED WITH EYES CLOSED, TELEMETRY WORN, NO DISTRESS NOTED, BED LOCKED AND LOW, CALL LIGHT IN REACH
[2018-12-26] MEDS: METOPROLOL SUCCINATE 50 MG TAB XL PO SCH (09:50)
[2018-12-26] MEDS: LISINOPRIL 10 MG TAB PO SCH (09:50)
[2018-12-26] MEDS: LEVOTHYROXINE SODIUM 75 MCG TAB PO SCH (09:50)
[2018-12-26] MEDS: ALPRAZOLAM 0.5 MG TAB PO SCH (09:50)
[2018-12-26] MEDS: FUROSEMIDE INJ 10 MG/ML 4 ML VIAL IV SCH ×2 (09:50→18:04)
[2018-12-26] MEDS: ASPIRIN 81 MG CHEW TAB PO SCH (09:50)
[2018-12-26] MEDS: PANTOPRAZOLE SOD 40 MG TABEC PO SCH (09:50)
[2018-12-26] MEDS: CEFTRIAXONE SOD 1 GM/NS 50 ML 50 ML IV SCH ×2 (09:50→22:00)
--- NOTE | 2018-12-26 09:50 | NUR ---
assessment complete no distress noted, updated on poc vocied understanding, denies pain at this time, r midline in place, dsg to BLE noted intact, with minimal drainage noted, no other co voiced call light in reach will continue ot monitor
[2018-12-26] MEDS: TRAMADOL HCL 50 MG TAB PO PRN (11:46)
--- NOTE | 2018-12-26 15:05 | Progress Note ---
DATE: SUBJECTIVE: Ms. Janes Swartz is doing better. No new complaints. REVIEW OF SYSTEMS HEENT: Negative. PULMONARY: Negative. CARDIAC: Negative. PHYSICAL EXAMINATION GENERAL: She is currently alert and oriented. Does not seem to be in acute distress. VITAL SIGNS: Stable. Afebrile. HEENT: She does not appear icteric. NECK: Supple. CHEST: Clear. HEART: S1 and S2. No murmur. ABDOMEN: Soft. Bowel sounds present. No tenderness. EXTREMITIES: No edema. IMPRESSION AND PLAN: Cellulitis seems to be improving, on vancomycin and Rocephin, plan of 10 days. Congestive heart failure, debility, pulmonary embolism, and hypertension, all stable. Job#: [id number] SARAH
--- NOTE | 2018-12-26 15:13 | Progress Note ---
DATE: December 26, 2018 CARDIOLOGY PROGRESS NOTE SUBJECTIVE: No major events overnight. OBJECTIVE VITAL SIGNS: Temperature 97.6, pulse 70, respiratory rate 20, blood pressure 130/60, satting 96% on room air. GENERAL: Elderly female in no acute distress. CARDIOVASCULAR: Normal rate, regular rhythm. No murmurs, rubs, or gallops. LUNGS: Clear to auscultation. ABDOMEN: Soft, nontender. NEURO AND PSYCH: Alert and oriented x2. INPATIENT MEDICATIONS: Reviewed. LABORATORY DATA: Reviewed. TELEMETRY DATA: Reviewed. ASSESSMENT 1. Lbtvo-tf-lytogln systolic heart failure. 2. Pulmonary emboli. 3. Bilateral lower extremity deep venous thrombosis. 4. Coronary artery disease, status post percutaneous coronary intervention in the past. 5. Peripheral arterial disease. 6. Hypertension. 7. Hypothyroidism. 8. Supratherapeutic INR, now therapeutic. RECOMMENDATIONS: Continue warfarin. Monitor daily INR while in the hospital. Continue current cardiovascular medications, otherwise. Thank you for this consult. We will continue to follow. Job#: [id number] DEEPA
[2018-12-26] MEDS: VANCOMYCIN 1GM/NS 250 ML 250 ML IV SCH (18:04)
[2018-12-26] MEDS: WARFARIN SOD 2 MG TAB PO SCH (18:04)
--- NOTE | 2018-12-26 19:10 | NUR ---
REPORT RECEIVED FROM OFF GOING NURSE, PT RESTING IN BED ALERT AND ORIENTED, NO DISTRESS NOTED, BED LOCKED AND LOW, CALL LIGHT IN REACH, INSTRUCTED TO CALL WITH NEEDS
[2018-12-27] VITALS (7 sets, daily range): BP systolic 97–152; BP diastolic 53–56
--- NOTE | 2018-12-27 05:16 | NUR ---
PT RESTING IN BED WITH EYES CLOSES NO DISTRESS NOTED, CALL LIGHT IN REACH, TELEMETRY NOTED
[2018-12-27] MEDS: FUROSEMIDE INJ 10 MG/ML 4 ML VIAL IV SCH ×2 (09:49→18:14)
[2018-12-27] MEDS: ALPRAZOLAM 0.5 MG TAB PO SCH (09:49)
[2018-12-27] MEDS: CEFTRIAXONE SOD 1 GM/NS 50 ML 50 ML IV SCH (09:49)
[2018-12-27] MEDS: LEVOTHYROXINE SODIUM 75 MCG TAB PO SCH (09:49)
[2018-12-27] MEDS: METOPROLOL SUCCINATE 50 MG TAB XL PO SCH (09:49)
[2018-12-27] MEDS: PANTOPRAZOLE SOD 40 MG TABEC PO SCH (09:49)
[2018-12-27] MEDS: ASPIRIN 81 MG CHEW TAB PO SCH (09:49)
[2018-12-27] MEDS: LISINOPRIL 10 MG TAB PO SCH (09:49)
[2018-12-27] MEDS: TRAMADOL HCL 50 MG TAB PO PRN ×2 (10:57→22:31)
--- NOTE | 2018-12-27 14:41 | Progress Note ---
DATE: INFECTIOUS DISEASE PROGRESS NOTE SUBJECTIVE: Ms. Sheridan Marrero is doing better. No new complaints. REVIEW OF SYSTEMS: Unremarkable. PHYSICAL EXAMINATION GENERAL: She is currently alert and oriented, does not seem to be in acute distress. VITAL SIGNS: Stable, currently afebrile. HEENT: Normocephalic. NECK: Supple. No JVD. No thyromegaly. CHEST: Clear bilateral. IMPRESSION AND PLAN 1. Cellulitis of the lower extremities, improving on vancomycin and Rocephin. 2. Urinary tract infection, doing better. 3. Congestive heart failure. Can change to oral Cipro 500 mg p.o. b.i.d. to finish in 14 days. Job#: [id number] DEEPA
--- NOTE | 2018-12-27 14:52 | NUR ---
PT CO FEET BEING COLD, BLE, COOL TO TOUCH, PEDIAL PULSES PALPABLE, INFORMED DR HAYWARD OF FINDINGS, STAT ORDERS FOR LAB WORK AND DOPPLER OF BLE, HAIRSPRING II INSPECTOR NOTIFIED, ULTRASOUND TO BE CALLED OUT
[2018-12-27 15:43] LABS: BASOPHILS % 0.3 % (0.0-1.0); EOSINOPHILS # (AUTO) 0.1 (0.0-0.4); EOSINOPHILS % 0.7 % (0.0-6.0); HEMOGLOBIN 12.8 g/dL (12.0-16.0); LYMPHOCYTES % 21.7 % (18.0-39.1); MEAN CORPUSCULAR HGB CONC 34.6 g/dL (31-35); MEAN CORPUSCULAR VOLUME 92.5 fL (81-99); MONOCYTES # (AUTO) 0.9 (0.2-0.8); MONOCYTES % 9.5 % (4.4-11.3); NEUTROPHILS % 66.7 % (38.7-80.0); PLATELET COUNT 337 x10e3/uL (140-360); RED CELL DISTRIBUTION WIDTH 15.7 % (11.7-14.4)
[2018-12-27 15:56] LABS: INR 3.07; PROTHROMBIN TIME 33.9 seconds (11.9-14.5)
[2018-12-27 16:03] LABS: ANION GAP 17.5 mmol/L (8-16); CALCIUM 9.1 mg/dL (8.4-10.2); CREATININE, SERUM 1.06 mg/dL (0.57-1.11); POTASSIUM 4.5 mmol/L (3.5-5.1)
--- NOTE | 2018-12-27 17:40 | NUR ---
SPOKE WITH DR HAYWARD RE: VANCOMYCIN TROUGH 23.6, HOLD DOSE AT THIS TIME
[2018-12-27] MEDS: WARFARIN SOD 2 MG TAB PO SCH (18:00)
[2018-12-27] MEDS: VANCOMYCIN 1GM/NS 250 ML 250 ML IV SCH (18:13)
--- NOTE | 2018-12-27 20:17 | NUR ---
RECEIVED PT IN BED AOX3 .DENIES PAIN BOTH ARMS AND LEGS BRUISED. LEFT LEG EDEMA AND NOTED VERY HAYDEE PULSE..SKIN TEAR AT LEFT LEG .GIVEN BEDPAN .CALL LIGHT WITH IN REACH .CONTINUE TO MONITOR
[2018-12-28] VITALS (8 sets, daily range): BP systolic 83–143; BP diastolic 50–82
--- NOTE | 2018-12-28 06:16 | NUR ---
PT RESTED DURING THE NIGHT .C/O PAIN GIVEN TRAMADOL CONTINUE TO MONITOR
--- NOTE | 2018-12-28 07:23 | NUR ---
REPORT GIVEN TO THE ONCOMING NURSE
--- NOTE | 2018-12-28 07:49 | NUR ---
spoke with md jain regarding pt ok to ambulate and get out of bed. md lam order
[2018-12-28] MEDS ORDERED: CEFTRIAXONE SOD 1 GM VIAL IV SCH (08:15)
[2018-12-28] MEDS: LISINOPRIL 10 MG TAB PO SCH (09:52)
[2018-12-28] MEDS: PANTOPRAZOLE SOD 40 MG TABEC PO SCH (09:52)
[2018-12-28] MEDS: METOPROLOL SUCCINATE 50 MG TAB XL PO SCH (09:52)
[2018-12-28] MEDS: FUROSEMIDE INJ 10 MG/ML 4 ML VIAL IV SCH ×2 (09:52→17:23)
[2018-12-28] MEDS: ASPIRIN 81 MG CHEW TAB PO SCH (09:52)
[2018-12-28] MEDS: LEVOTHYROXINE SODIUM 75 MCG TAB PO SCH (09:52)
[2018-12-28 10:05] LABS: INR 3.62; PROTHROMBIN TIME 38.5 seconds (11.9-14.5)
[2018-12-28] MEDS: CEFTRIAXONE SOD 1 GM/NS 50 ML 50 ML IV SCH ×2 (10:26→21:00)
--- NOTE | 2018-12-28 13:31 | NUR ---
Received order for home health. JUAN spoke with pt at bedside. Pt stated that she is currently under service with [facility] and that she would like to resume with the same company. Choice letter signed for [facility]. CM called and spoke to Teresa with Intake at [facility] and verified that pt is currently on service. Informed her that pt is pending discharge tomorrow. Teresa stated she will put pt down to be seen on Friday. CM will follow up with discharge date. Resumption order and clinicals faxed. [facility] [address] [place] [address] P [phone] F [phone] [employer] letter delivered and explained to pt. She verbalized understanding. Signed copy placed in chart. Copy given to pt and placed in transition of care folder. Business card given to patient as well for any questions/concerns.
--- NOTE | 2018-12-28 15:37 | Progress Note ---
DATE: CARDIOLOGY PROGRESS NOTE SUBJECTIVE: Patient overall feeling well. Denies any chest pain. No major events otherwise. OBJECTIVE: VITAL SIGNS: Temperature is 96.3, heart rate is 65, respirations are 16, blood pressure is 92/50, ox saturation is 92% on room air. GENERAL: Elderly woman, no apparent distress. CARDIOVASCULAR: Regular rate and rhythm. LUNGS: Diminished breath sounds in the bilateral bases. ABDOMEN: Soft, nontender. EXTREMITIES: 1+ edema. SKIN: Ecchymoses bilaterally over upper extremities. LABORATORY DATA: Reviewed. IMPRESSION: 1. Kyuxy-rm-uydhcjd systolic congestive heart failure. 2. Pulmonary emboli. 3. Bilateral deep venous thrombosis. 4. Coronary artery disease status post percutaneous coronary intervention in the past. 5. Peripheral vascular disease. 6. Hypertension. 7. Hypothyroidism. PLAN: Continue warfarin for a therapeutic INR. Current INR is 3.62. Consider holding the dose today with changing of her regimen. Otherwise continue all current cardiovascular medications. Job#: [id number] EV
[2018-12-28] MEDS: WARFARIN SOD 2 MG TAB PO SCH (17:00)
--- NOTE | 2018-12-28 17:12 | NUR ---
Nutrition Screen Note RD Recommendation for Physician: - Continue Cardiac diet as ordered Plan of Care: RD following, monitoring for tolerance and adequacy Nutrition reason for involvement: Follow up Primary Diagnose(s): Chest pain, CHF exacerbation, Dyspnea, UTI PMH: HTN, PNA, back pain, thyroid disorder,GERD Ht: 63 in Wt: 153 lb BMI: 27.09 kg/m2 IBW: [address] Assessment: (12/28) Chart reviewed. No labs since 12/27. Pending placement. Visited pt in the room. Pt reported fair appetite with ~50-100% recorded meal intake. No GI complains noted. LBM 12/28. Pt denied chewing or swallowing issue. Will continue to monitor and follow. (12/21) 83 YOF admitted for chest pain, CHF exacerbation, dyspnea, and UTI, pt seen today due to admit dx of CHF exacerbation. Pt reports fair appetite and intake, states this is her baseline. Pt denies wt loss, reports UBW of 145# and states she gained wt due to fluid. 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 Pt reported nausea at time of visit and reported vomiting yesterday, diet education not appropriate at this time. Chart reviewed. Labs and meds noted. Current Diet: Cardiac Malnutrition Evaluation (12/21/18) The patient does not meet criteria for a specified degree of malnutrition at this time. Will re-evaluate at follow-up as appropriate. Energy intake: <75% of estimated energy requirements for >3 months Weight loss: None, UBW 145# Fat loss: none Muscle loss: none Supporting Evidence: Fluid accumulation: unable to evaluate Functional Status: unable to evaluate Diet Education Needs Assessment: Diet education indicated, pt is not interested. Nutrition Care Level: Low Signed: Jennifer Juares, MS, RD, LD
[2018-12-28] MEDS ORDERED: TRAMADOL HCL 50 MG TAB PO PRN (19:15)
[2018-12-28] MEDS ORDERED: SODIUM CHLORIDE 0.9% 250ML 250 ML ONE (20:04)
[2018-12-29] VITALS: BP 105/54
[2018-12-29 02:43] VITALS: BP 105/54
[2018-12-29 04:00] VITALS: BP 88/54
--- NOTE | 2018-12-29 05:26 | Discharge Summary ---
DISCHARGE DIAGNOSES 1. Left lower extremity cellulitis. 2. Bilateral lower extremity deep venous thrombosis, present on admission. 3. Pulmonary embolus, also present on admission. HISTORY OF PRESENT ILLNESS AND HOSPITAL COURSE: See hospital chart for full details. Patient is an elderly white female who presented with lower back pain and left lower extremity cellulitis that was slightly worse. She was brought in and found to have lower extremity Dopplers with 2 DVTs present, as well as a CT scan showing a pulmonary embolus. She was hemodynamically stable with no oxygenation issues. She was placed on Coumadin. At the time of discharge, she was therapeutic with INR of 3.2. She was placed on IV antibiotics and seen by Dr. Perez where she had of her lower extremity cellulitis. She was able to be discharged home on p.o. Cipro for 14 more days and finish the treatment. I did offer the patient halfway facility for rehab for which she refused. At the time of discharge, her lower back pain was doing much better as well. She was discharged per her wishes to home with home health. She is to follow up with me in 1-2 weeks. Please see hospital chart for full details. JODY HAYWARD MD Job#: [id number] DC
--- NOTE | 2018-12-29 06:29 | NUR ---
PT C/O PAIN X1 AND GIVEN TRAMADOL.PT RESTED DURING THE NIGHT .CONTINUE TO MONITOR
--- NOTE | 2018-12-29 07:11 | NUR ---
REPORT GIVEN TO THE ON COMING NURSE
[2018-12-29 07:59] VITALS: BP 159/68
[2018-12-29] MEDS ORDERED: CIPRO500 MG PO (09:01)
[2018-12-29] MEDS: METOPROLOL SUCCINATE 50 MG TAB XL PO SCH (09:30)
[2018-12-29] MEDS: CEFTRIAXONE SOD 1 GM/NS 50 ML 50 ML IV SCH (09:30)
[2018-12-29] MEDS: LEVOTHYROXINE SODIUM 75 MCG TAB PO SCH (09:30)
[2018-12-29] MEDS: ASPIRIN 81 MG CHEW TAB PO SCH (09:30)
[2018-12-29] MEDS: LISINOPRIL 10 MG TAB PO SCH (09:30)
[2018-12-29] MEDS: PANTOPRAZOLE SOD 40 MG TABEC PO SCH (09:30)
[2018-12-29] MEDS: FUROSEMIDE INJ 10 MG/ML 4 ML VIAL IV SCH (09:30)
--- NOTE | 2018-12-29 09:56 | NUR ---
discharge instructions and prescriptions given, pt verbalized understanding .pt states she does not have prescriptions for lisinopril, xanax , and tramadol at home. contacted md jain. will call prescriptions in. midline dc pressure dressing applied at taped. pt is ready for pt at this time. pt is waiting for ride home
[2018-12-29 10:11] VITALS: BP 159/68
--- NOTE | 2018-12-29 11:00 | NUR ---
Spoke with Teresa at [facility] and informed her that pt is discharging today. Pt to be seen tomorrow.
--- NOTE | 2018-12-29 11:11 | NUR ---
PT OFF UNIT TO HOME
== END 2018-12-29 11:11 | disposition home health service (06) | DRG 291 ==
LOC: ER 17:10 → INTOOBSV 21:14 → ERHOLD 21:14 → MED/SURG 21:57 → OBSVTOIN 12-22 13:59
PROVIDERS: ADMIT Internal Medicine; ATTEND Internal Medicine
DX: I11.0 Hypertensive heart disease with heart failure (principal); I26.99 Other pulmonary embolism without acute cor pulmonale; L03.116 Cellulitis of left lower limb; I82.403 Acute embolism and thrombosis of unspecified deep veins of lower extremity, bilateral; N39.0 Urinary tract infection, site not specified; L97.329 Non-pressure chronic ulcer of left ankle with unspecified severity; I50.23 Acute on chronic systolic (congestive) heart failure; I25.10 Atherosclerotic heart disease of native coronary artery without angina pectoris; I73.9 Peripheral vascular disease, unspecified; E03.9 Hypothyroidism, unspecified; Z95.5 Presence of coronary angioplasty implant and graft; K21.9 Gastro-esophageal reflux disease without esophagitis; D64.9 Anemia, unspecified; R79.1 Abnormal coagulation profile
CPT/HCPCS: 36415; 71045; 71260; 80048; 80053; 80202; 81001; 82550; 82553; 83605; 83690; 83735; 83880; 84484; 85025; 85610; 85730; 86850; 86900; 87086; 87186; 93005; 93925; 93970; 97139; 99284; G0378; J0696; J1650; J1940; J2270; J3370; J7050; Q9967

== ENCOUNTER 2019-01-11 15:32 | Emergency (ER) | payer MEDICARE ==
[~2019-01-11] VITALS: Ht 160 cm; Wt 75.7 kg
[~2019-01-11 15:32] MED LIST changes: +CIPRO500 MG PO; +CLOPIDOGREL75 MG PO; +LISINOPRIL10 MG PO; +LOVENOX60 MG/0.6 SC; +POTASSIUM CHLO10 ME1 PO; +WARFARIN SODIU2.5 MG PO
--- NOTE | 2019-01-11 18:03 | Diagnostic Imaging Report ---
EXAMINATION: CHEST SINGLE (PORTABLE) INDICATION: ^LE EDEMA, SOB COMPARISON: Chest x-ray 12/23/2018. CT chest 12/24/2017. FINDINGS: AP view TUBES and LINES: None. LUNGS: Lungs are not well inflated. There is mild prominence of the central pulmonary vasculature, consistent with pulmonary venous congestion. Questionable focal airspace opacity in the lateral right midlung. PLEURA: No pleural effusion or pneumothorax. HEART AND MEDIASTINUM: The cardiomediastinal silhouette is unremarkable. There are atherosclerotic calcifications within the aorta. BONES AND SOFT TISSUES: Vertebroplasty material is again seen. No acute osseous lesion. Soft tissues are unremarkable. UPPER ABDOMEN: No free air under the diaphragm. IMPRESSION: 1. New central pulmonary venous congestion. 2. Questionable focal airspace opacity in the lateral right midlung. Signed by: Dr. Jacob Singh M.D. on 01/11/2019 6:00 PM
--- NOTE | 2019-01-11 18:07 | Diagnostic Imaging Report ---
LOWER LEG LEFT - 3 views HISTORY: Vomiting. Redness. Swelling.. COMPARISON: None available. FINDINGS: Bones: No acute displaced fracture. Osseous alignment is within normal limits. Joints: Severe degenerative changes in the lateral compartment of the left knee. Soft tissues: Diffuse soft tissue swelling including the subcutaneous tissues and muscle. IMPRESSION: Diffuse soft tissue swelling of the subcutaneous tissue and muscle. Signed by: Dr. Jacob Singh M.D. on 01/11/2019 6:04 PM
[2019-01-11 19:12] LABS: CLARITY,URINE SL CLOUDY (CLEAR); COLOR,URINE YELLOW (YELLOW); LEUKOCYTE ESTERASE ,URINE 2+ (NEGATIVE); NITRITE,URINE POSITIVE (NEGATIVE); PROTEIN,URINE DIPSTICK NEGATIVE (NEGATIVE)
[2019-01-11 19:13] LABS: BILIRUBIN,URINE NEGATIVE (NEGATIVE); KETONES,URINE NEGATIVE (NEGATIVE); URINE UROBILINOGEN 0.2 mg/dL (0.2 - 1)
--- NOTE | 2019-01-11 19:15 | NUR ---
dr alberto spoke with dr jain, [facility], nurse states no bed reserved at this time, pt will need to call admissions in the am. pt informed. labs cancelled per dr alberto. pt agrees to call [facility] in am. awake alert skin w/d resp nonlab. nad noted.
--- NOTE | 2019-01-11 19:27 | NUR ---
REPORT GIVEN TO MAYRA WILSON PT IN CT
[2019-01-11 19:28] LABS: BACTERIA,URINE MANY /HPF; WBC,URINE (MAN) >50 /HPF (0-5)
== END 2019-01-11 19:45 | disposition home or self-care (01) ==
LOC: ER 15:32
DX: M79.662 Pain in left lower leg (principal); M79.661 Pain in right lower leg; I82.432 Acute embolism and thrombosis of left popliteal vein; I82.431 Acute embolism and thrombosis of right popliteal vein; I87.2 Venous insufficiency (chronic) (peripheral); I50.9 Heart failure, unspecified; I10 Essential (primary) hypertension; E03.9 Hypothyroidism, unspecified; Z95.5 Presence of coronary angioplasty implant and graft
CPT/HCPCS: 71045; 81001; 87086; 87186; 93005; 93925; 93970; 99283